=== PATIENT | male | born 1965 | race Caucasian/White ===

== ENCOUNTER 2017-01-23 07:26 | Emergency (ER) | payer SELFPAY ==
[~2017-01-23] VITALS: Ht 188 cm; Wt 88.2 kg
[2017-01-23 07:38] VITALS: BP 128/77
== END 2017-01-23 08:24 | disposition home or self-care (01) ==
LOC: ED 07:26
DX: J02.9 Acute pharyngitis, unspecified (principal); R11.10 Vomiting, unspecified; R19.7 Diarrhea, unspecified

== ENCOUNTER 2017-07-30 11:48 | Inpatient (IN) | payer MEDICAID ==
[~2017-07-30] VITALS: Ht 188 cm; Wt 75.9 kg
[2017-07-30 15:29] LABS: PLATELET COUNT 373 x10^3mcL (130-400)
[2017-07-30 15:38] LABS: CALCIUM 8.5 mg/dL (8.5-10.1); CARBON DIOXIDE 28.3 mmol/L (21-32); CHLORIDE SERUM 97 mmol/L (98-107); CREATININE SERUM 1.1 mg/dL (0.7-1.3); GFR1 > 60 mL/min; GLUCOSE SERUM 128 mg/dL (74-106); POTASSIUM SERUM 3.4 mmol/L (3.5-5.1); SODIUM SERUM 132 mmol/L (136-145)
[2017-07-30 15:44] LABS: ALBUMIN 3.4 g/dL (3.4-5.0); ALKALINE PHOSPHATASE 75 U/L (46-116); ALT/SGPT 40 U/L (16-63); AST/SGOT 27 U/L (15-37); LIPASE 58 IU/L (73-393); RED CELL DISTRIBUTION WIDTH 15.2 % (11.5-14.5); TOTAL PROTEIN, SERUM 7.3 g/dL (6.4-8.2)
[2017-07-30 17:34] LABS: AMPHETAMINE QUAL UR POSITIVE (NEG <=1000)
[2017-07-30 18:08] LABS: BAND NEUTROPHIL 17 % (0-10); BASOPHIL 0 % (0-2); METAMYELOCTE 1 % (0-2); MONOCYTE 13 % (0-7); SEGMENTED NEUTROPHILS 60 % (37-75)
[2017-07-30 18:09] LABS: rbc morphology (normal/abnorm) ABNORMAL (NORMAL)
[2017-07-30 18:11] LABS: PLATELET MORPHOLOGY PLATELETS NORMAL; target cell (codocyte) 1+
[2017-07-30 20:33] LABS: MAGNESIUM 1.6 mg/dL (1.8-2.4)
[2017-07-30 20:42] LABS: T3 TOTAL 0.67 ng/mL
[2017-07-30 21:07] LABS: FREE T4 1.14 ng/dL (0.76-1.46); FREE THYROXINE INDEX 2.7 ug/dL (1.4-4.5); T4(THYROXINE) 7.5 ug/dL (4.7-13.3)
[2017-07-30 21:11] VITALS: BP 111/76
[2017-07-30 21:15] VITALS: Ht 188 cm; Wt 75.9 kg
[2017-07-31 05:43] VITALS: BP 118/55
[2017-07-31 06:25] LABS: PLATELET COUNT 323 x10^3mcL (130-400)
[2017-07-31 06:34] LABS: RED CELL DISTRIBUTION WIDTH 14.7 % (11.5-14.5)
[2017-07-31 06:37] LABS: CALCIUM 8.2 mg/dL (8.5-10.1); CARBON DIOXIDE 30.7 mmol/L (21-32); CHLORIDE SERUM 101 mmol/L (98-107); CREATININE SERUM 0.9 mg/dL (0.7-1.3); GFR1 > 60 mL/min; GLUCOSE SERUM 95 mg/dL (74-106); MAGNESIUM 1.8 mg/dL (1.8-2.4); POTASSIUM SERUM 3.1 mmol/L (3.5-5.1); SODIUM SERUM 136 mmol/L (136-145)
[2017-07-31 07:27] LABS: ATYPICAL LYMPH 1 %; BAND NEUTROPHIL 20 % (0-10); BASOPHIL 0 % (0-2); MONOCYTE 8 % (0-7); SEGMENTED NEUTROPHILS 57 % (37-75)
[2017-07-31 07:28] LABS: rbc morphology (normal/abnorm) ABNORMAL (NORMAL)
[2017-07-31 07:29] LABS: PLATELET MORPHOLOGY LARGE PLATELET SEEN
[2017-07-31 09:48] VITALS: BP 111/70
[2017-07-31 13:55] VITALS: BP 123/73
[2017-07-31 14:52] LABS: microscopic required? NO
[2017-07-31 14:58] LABS: UA SPECIFIC GRAVITY >=1.030 (1.005-1.035); urine erythrocyte NEGATIVE (NEGATIVE)
[2017-07-31 16:51] VITALS: BP 113/66
== END 2017-07-31 19:10 | disposition left against medical advice (07) | DRG 720 ==
LOC: ED 11:48 → DU 19:51
PROVIDERS: Emergency Medicine; ADMIT Student in an Organized Health Care Education/Training Program
DX: A41.9 Sepsis, unspecified organism (principal); N20.1 Calculus of ureter; A03.3 Shigellosis due to Shigella sonnei; M51.36 Other intervertebral disc degeneration, lumbar region; E83.51 Hypocalcemia; E87.6 Hypokalemia; F17.210 Nicotine dependence, cigarettes, uncomplicated; F15.10 Other stimulant abuse, uncomplicated; Z16.11 Resistance to penicillins; Z16.29 Resistance to other single specified antibiotic; Z59.0 Homelessness; Z68.21 Body mass index [BMI] 21.0-21.9, adult
CPT/HCPCS: 83880; 84439; 87046; 87046-59; 90658; J1956; J2405; J3475; J3480; J3490; J7030; Q0092

== ENCOUNTER 2019-07-06 22:17 | Emergency (ER) | payer SELFPAY ==
[~2019-07-06] VITALS: Ht 188 cm; Wt 79.9 kg
[2019-07-07 00:31] LABS: UA SPECIFIC GRAVITY >=1.030 (1.005-1.035); microscopic required? YES; urine erythrocyte 3+ (NEGATIVE)
[2019-07-07 04:31] VITALS: BP 131/97
== END 2019-07-07 04:31 | disposition home or self-care (01) ==
LOC: ED 22:17
PROVIDERS: Emergency Medicine
DX: N20.0 Calculus of kidney (principal); Z98.890 Other specified postprocedural states
CPT/HCPCS: J1885; J2270; J2405